=== PATIENT | male | born 1975 ===

== ENCOUNTER → 2022-03-02 12:22 | Outpatient (BNVA) | payer MEDICARE, MEDICAID, SELFPAY | PROVIDERS: Referring Provider Student in an Organized Health Care Education/Training Program; Visit Provider Internal Medicine Gastroenterology | DX: K59.01 Slow transit constipation (principal); Z93.1 Gastrostomy status; Z87.820 Personal history of traumatic brain injury | CPT/HCPCS: 99202 ==

== ENCOUNTER → 2022-08-31 11:32 | Outpatient (BNVA) | payer MEDICARE, MEDICAID, SELFPAY | PROVIDERS: Visit Provider Internal Medicine Gastroenterology | DX: Z93.1 Gastrostomy status (principal) | CPT/HCPCS: 99212 ==

== ENCOUNTER → 2023-05-31 14:19 | Outpatient (BNVA) | payer MEDICARE, MEDICAID, SELFPAY | PROVIDERS: Visit Provider Internal Medicine Gastroenterology | DX: K21.9 Gastro-esophageal reflux disease without esophagitis (principal) | CPT/HCPCS: 99212 ==

== ENCOUNTER 2023-11-01 08:53 | Outpatient (AMB) | payer MEDICARE, MEDICAID, SELFPAY ==
--- NOTE | 2023-11-01 09:27 | MHC.OFFVIS ---
Intake Vital Signs 11/01/23 09:34 Height 5 ft 7 in Weight 149 lb BMI 23.3 BP 128/81 Blood Pressure Location Lt brachial Position Sitting Pulse 80 Pulse Oximetry (%) 96 Intake Visit Reasons: elevated liver enzymes Intake Note: Deny presents in the office as a follow up for elevated LFTs. CC: US on the . His LFT are elevated. HE had a lot of bloody nose and mouth 3 weeks ago. Needs medications refilled. Allergies morphine Allergy (Mild, Verified 05/31/23 14:33) Unknown HPI elevated liver enzymes HPI Details 47 yr old with TBI being seen for f/u with mother Recap: Patient is non verbal at baseline and hx from mother and son patient has been doing well since hospitalization 12/2021 for pneumonia occ he needs a suppository for constipation mother is worried the G tube is too small sometimes liquid coming out of the tube tube itself flushes well, no issues with feeds He had 18 Fr BRADEN, 3 cm button placed 12/2021 Per mother he was admitted for pneumonia and vomiting just after I saw him last August INTERIM: Per mum no issues with constipation, miralax working well he has some issues with nose bleeds, and has humidifier at home no abdominal pain waiting for Us liver in Oct due to mild AST/ALt elevation EXAM: GENERAL: The patient is non verbal, spastic limbs noted, VITAL SIGNS:see workflow HEENT: Nonicteric sclerae, PERRLA, EOMI. Oropharynx clear. Moist mucous membranes. Conjunctivae appear well perfused. No thyroid mass. CHEST: Chest wall is nontender. HEART: Regular rate and rhythm without murmurs. LUNGS: rhonchrous breth sounds ABDOMEN: Soft, positive bowel sounds, nontender, no organomegaly.no flank tenderness, G tube noted SKIN: No rash, no excessive bruising, petechiae, or purpura. NEUROLOGIC: Cranial nerves II-XII intact without motor/sensory deficit. Psych--non verbal A/P: 1/ nose bleeds, has seen ENT in past and told he has friable nasal veins 2/ abn LFT prob PITTMAN PLAN: 1/ await US liver--hold on trental and vit E for the moment 2/ cont with PPI for aspiriation hx 3/ add saline nasal spray 4/ get heme notes from [facility] Family History Mother HTN (hypertension) Father Diabetes Physical Exam Vital Signs: Last Vital Signs Pulse 80 11/01/23 09:34 BP 128/81 11/01/23 09:34 Pulse Ox 96 11/01/23 09:34 BMI result Body Mass Index 23.3 Assessment & Plan Assessment & Plan (1) GERD (gastroesophageal reflux disease): Code(s): K21.9 - Gastro-esophageal reflux disease without esophagitis Plan: PLAN: 1/ await US liver 2/ cont with PPI for aspiriation hx 3/ add saline nasal spray 4/ get heme notes from [facility] (2) Bleeding nose: Code(s): R04.0 - Epistaxis Plan: PLAN: 1/ await US liver 2/ cont with PPI for aspiriation hx 3/ add saline nasal spray 4/ get heme notes from [facility] Medications: New sodium chloride 0.65% (Children's Saline Nasal [place]) while awake 2 sprays intranasal Q2H 30 mL 2RF Refilled polyethylene glycol 3350 (Gavilax) 17 grams PO BID 100 ea 2RF Coding Level of Care Code Est Pt Level 3 (73866) Diagnoses GERD (gastroesophageal reflux disease) K21.9 Bleeding nose R04.0
[2023-11-01 09:34] VITALS: BP 128/81; PULSE 80; O2SAT 96; BMI 23.3
== END 2023-11-01 09:57 | disposition home or self-care (01) ==
PROVIDERS: Visit Provider Internal Medicine Gastroenterology
DX: K21.9 Gastro-esophageal reflux disease without esophagitis (principal); R04.0 Epistaxis
CPT/HCPCS: 99213

== ENCOUNTER → 2023-11-01 08:53 | Outpatient (BNVA) | payer MEDICARE, MEDICAID, SELFPAY | PROVIDERS: Visit Provider Internal Medicine Gastroenterology | DX: R04.0 Epistaxis (principal); K21.9 Gastro-esophageal reflux disease without esophagitis; R74.8 Abnormal levels of other serum enzymes | CPT/HCPCS: 99212 ==

== ENCOUNTER 2023-12-24 08:43 | Outpatient (REF) | payer MEDICARE, MEDICAID, SELFPAY | END 2023-12-24 08:44 | disposition home or self-care (01) | LOC: CF 08:43 | PROVIDERS: Visit Provider Internal Medicine Gastroenterology | DX: R16.0 Hepatomegaly, not elsewhere classified (principal) | CPT/HCPCS: 99212 ==

== ENCOUNTER 2023-12-24 08:43 | Outpatient (AMB) | payer MEDICARE, MEDICAID, SELFPAY ==
--- NOTE | 2023-12-24 08:49 | A.OFFVIS_ITS ---
Intake Vital Signs 12/24/23 09:01 Height 5 ft 7 in Weight 149 lb BMI 23.3 BP 129/70 Blood Pressure Location Lt brachial Position Sitting Pulse 82 Intake Visit Reasons: Urgent appt requested PCP Intake Note: Deny presents in the office as a urgent appt from PCP. CC: Talk about CT and US results. Mass on Liver was found and would like to just have you look at the g tube. Allergies morphine Allergy (Mild, Verified 12/24/23 09:01) Unknown HPI Urgent appt requested PCP HPI Details 48 yr old with TBI being seen for f/u wi th mother Recap: Patient is non verbal at baseline and hx from mother and son patient has been doing well since hospitalization 12/2021 for pneumonia occ he needs a suppository for constipation mother is worried the G tube is too small sometimes liquid coming out of the tube tube itself flushes well, no issues with feeds He had 18 Fr BRADEN, 3 cm button placed 12/2021 INTERIM: Sent by PCP for early f/u due to liver imaging with CT revealing liver masses, most consistent with FNH with arterial enhancement and iso attenuation in venous phase, stable compared to prior CT 04/2023, unable to get MRI due to metal in body-- I personally reviewed the images otherwise he is well no constipation no sigsn fo distress EXAM: GENERAL: The patient is non verbal, spastic limbs noted, VITAL SIGNS:see workflow HEENT: Nonicteric sclerae, PERRLA, EOMI. Oropharynx clear. Moist mucous membranes. Conjunctivae appear well perfused. No thyroid mass. CHEST: Chest wall is nontender. HEART: Regular rate and rhythm without murmurs. LUNGS: rhonchrous breath sounds ABDOMEN: Soft, positive bowel sounds, nontender, no organomegaly.no flank tenderness, G tube noted SKIN: No rash, no excessive bruising, petechiae, or purpura. NEUROLOGIC: Cranial nerves II-XII intact without motor/sensory deficit. Psych--non verbal A/P: 1/ abn LFT prob PITTMAN, imaging with likel y FNH PLAN: 1/ repeat Ct in [address] ability, if needed can bx PFSH Family History Mother HTN (hypertension) Father Diabetes Physical Exam Vital Signs: Last Vital Signs Pulse 82 12/24/23 09:01 BP 129/70 12/24/23 09:01 BMI result Body Mass Index 23.3 Assessment & Plan Assessment & Plan (1) Liver mass: Code(s): R16.0 - Hepatomegaly, not elsewhere classified Plan: see above Orders: Orders CT abdomen wo/w IV con 3 Months R16.0 - Hepatomegaly, not elsewhere classified Coding Level of Care Code Est Pt Level 3 (07025) Diagnoses Liver mass R16.0
[2023-12-24 09:01] VITALS: BP 129/70; PULSE 82; BMI 23.3
== END 2023-12-24 09:37 | disposition home or self-care (01) ==
PROVIDERS: Visit Provider Internal Medicine Gastroenterology
DX: R16.0 Hepatomegaly, not elsewhere classified (principal)
CPT/HCPCS: 99213

== ENCOUNTER 2024-03-16 10:12 | Outpatient (REF) | payer MEDICARE, MEDICAID, SELFPAY ==
--- NOTE | ~2024-03-16 | CT_ITS ---
EXAMINATION: CT ABDOMEN WITHOUT AND WITH CONTRAST CLINICAL INFORMATION: Hepatomegaly with outside CT scan suspecting FNH. Unable to get MRI for surveillance. COMPARISON: None available. TECHNIQUE: Contiguous axial thin section helical images of the abdomen were performed before and after the administration of oral contrast and 85 mL of Omnipaque 350 intravenous contrast. Two sets of postcontrast imaging was obtained, one during the arterial phase the other during the portal venous phase. The data set was reformatted in the coronal and sagittal planes and reviewed on an independent workstation. This CT examination was performed using dose optimization techniques as appropriate, variously including the following: *Automated exposure control *Adjustment of mA and/or kV according to patient size (this includes techniques or standardized protocols for targeted exams where dose is matched to indication/reason for exam; i.e. extremities or head) *Use of iterative reconstruction technique DLP: 2061 mGy-cm FINDINGS: LUNG BASES: There is chronic atelectasis/infiltrate in the posterior basal segment of the right lower lobe. No evidence of pulmonary metastatic disease. LIVER, GALLBLADDER, AND BILIARY TREE: Two liver masses are present. There is one in the left lobe of the liver measuring 5.7 x 3.8 cm in maximal transverse dimension previously measuring 5.6 x 3.5 cm (4:33 compare prior 602:59) with another in the caudate with maximal measurements of 4.7 x 3.6 cm previously 4.5 x 3.5 cm (4:34 compare prior 602:60). There is a smaller area of hyperattenuation seen in the right lobe of the liver in a subcapsular position measuring 0.8 cm which is unchanged (4:25 compare prior 602:46). No other definite hepatic masses. No biliary ductal dilatation is seen. The gallbladder is not seen. PANCREAS: Unremarkable. SPLEEN: Unremarkable. ADRENAL GLANDS: Unremarkable. KIDNEYS AND URETERS: The kidneys are normal in size, shape, and attenuation. No hydronephrosis, hydroureter, or calculi seen. No perinephric stranding. A benign right mid renal 1.0 cm Bosniak class I renal cyst is noted which requires no additional imaging or followup. No solid renal masses are seen. GASTROINTESTINAL TRACT: The visualized bowel is unremarkable including the appendix. ABDOMINAL WALL: An intrathecal pump is implanted in the right lower quadrant with a catheter extending into the spinal canal extending upwards beyond the [id number]. LYMPH NODES: No retroperitoneal lymphadenopathy. VASCULAR: Unremarkable. OSSEOUS STRUCTURES: Unremarkable. CT/CT abdomen wo/w IV con IMPRESSION: 1. Two hepatic masses are present. The largest has increased in size slightly compared with the prior study. The smaller one is unchanged. MRI is recommended for further characterization. 2. Other incidental findings as described above. Fleischner guidelines were followed.
[2024-03-16] MEDS: iohexoL 350 MG/ML 100 ML INFUS..BTL IV (11:28)
== END 2024-03-16 10:13 | disposition home or self-care (01) ==
LOC: HO.CT 10:12
PROVIDERS: Visit Provider Internal Medicine Gastroenterology
DX: R16.0 Hepatomegaly, not elsewhere classified (principal)
CPT/HCPCS: 74170; Q9967

== ENCOUNTER → 2024-04-11 12:36 | Outpatient (REF) | payer MEDICARE, MEDICAID, SELFPAY ==
--- NOTE | ~2024-04-11 | NM_ITS ---
EXAMINATION: PLANAR AND SPECT/CT LIVER/SPLEEN SCAN CLINICAL INFORMATION: 48-year-old male with hepatomegaly and hypervascular lesion seen on outside CT scan. Suspected FNH. Unable to get MRI for surveillance. COMPARISON: CT scan of the abdomen done on 03/16/[address] scan of the abdomen and done on 12/06/2023. TECHNIQUE: Multiple gamma scintillation camera images of the liver and spleen were performed following the intravenous administration of 5.0 mCi Tc-99m Sulfur Colloid. Additional SPECT images of the abdomen were also obtained. Single photon emission tomography (SPECT) of the abdomen was performed using a hybrid SPECT/CT scanner acquiring 120 projections of 25 seconds each over 360 degrees using a noncircular orbit and an acquisition matrix of [id number]. Transverse, coronal and sagittal projections and a cine volume were reconstructed. Nondiagnostic CT images were obtained for attenuation correction and localization. FINDINGS: Planar and SPECT imaging: The liver is normal in size, shape, and position. There is relatively homogeneous distribution of activity within both lobes of the liver except for presence of relative photopenia corresponding to the site of previously documented to large (measuring approximately 5.7 and 4.7 cm at their maximum dimensions respectively) hypervascular masses seen within the caudate lobe and segment 2/3 of left lobe of the liver, better visualized on prior CT studies done on 12/06/2023 and 03/16/2024. Please note that 2/3rd of FNH greater than 2 cm typically shows tracer avidity greater than that of the adjacent liver while the remainder of the 1/3rd of the FNH typically photopenic. Accordingly, differential diagnostic consideration would remain photopenic FNH versus other non- FNH pathology. The findings are much better visualized on the SPECT images as compared to the planar. The spleen is normal in size, shape and position. Intensity of the spleen compared to the liver is normal, with the spleen slightly less intense than the liver. Very faint bone marrow activity is visualized, and this is physiological. NM/NM liver SPECT IMPRESSION: Previously documented 5.7 and 4.7 cm hypervascular masses seen within the liver do not show any increased tracer/sulfur colloid avidity as compared to the background liver parenchyma. Differential includes photopenic FNH versus other non-FNH pathology. Further differentiation cannot be made based on this imaging appearance alone. Image guided biopsy may be considered for definitive histopathologic correlation, if clinically appropriate.
== END ==
LOC: HO.NUCMED 12:36
PROVIDERS: Visit Provider Internal Medicine Gastroenterology
DX: R16.0 Hepatomegaly, not elsewhere classified (principal)
CPT/HCPCS: 78803; A9541

== ENCOUNTER 2024-05-05 09:03 | Outpatient (AMB) | payer MEDICARE, MEDICAID, SELFPAY ==
--- NOTE | 2024-05-05 09:04 | MHC.OFFVIS ---
Vital Signs 05/05/24 09:20 Height 5 ft 7 in Weight 149 lb BMI 23.3 BP 126/60 Blood Pressure Location Lt brachial Position Sitting Pulse 91 Intake Visit Reasons: [address] results Intake Note: Deny presents in the office as a 4 month follow up for CT results. Wants to discuss scheduling a change in the G tube. Preassembler And Inspector Required: Yes Allergies morphine Allergy (Mild, Verified 05/05/24 09:25) Unknown HPI HPI [address] results: Details: 48 yr old with TBI being seen for f/u with mother Recap: Patient is non verbal at baseline and hx from mother and son patient has been doing well since hospitalization 12/2021 for pneumonia occ he needs a suppository for constipation mother is worried the G tube is too small sometimes liquid coming out of the tube tube itself flushes well, no issues with feeds He had 18 Fr LARS, 3 cm button placed 12/2021 Sent by PCP for early f/u due to liver imaging with CT revealing liver masses, most consistent with FNH with arterial enhancement and iso attenuation in venous phase, stable compared to prior CT 04/2023, unable to get MRI due to metal in body-- I personally reviewed the images Due to liver mass, SPECT done possible FNH - INTERIM: otherwise he is well no constipation stable per mother - g tube feeds easy, no leaking EXAM: GENERAL: The patient is non verbal, spastic limbs noted, VITAL SIGNS:see workflow HEENT: Nonicteric sclerae, PERRLA, EOMI. Oropharynx clear. Moist mucous membranes. Conjunctivae appear well perfused. No thyroid mass. CHEST: Chest wall is nontender. HEART: Regular rate and rhythm without murmurs. LUNGS: rhonchrous breath sounds ABDOMEN: Soft, positive bowel sounds, nontender, no organomegaly.no flank tenderness, G tube noted--looks to be in good shape SKIN: No rash, no excessive bruising, petechiae, or purpura. NEUROLOGIC: Cranial nerves II-XII intact without motor/sensory deficit. 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
[2024-05-05 09:20] VITALS: BP 126/60; PULSE 91; BMI 23.3
== END 2024-05-05 09:38 | disposition home or self-care (01) ==
PROVIDERS: Visit Provider Internal Medicine Gastroenterology
DX: R16.0 Hepatomegaly, not elsewhere classified (principal)
CPT/HCPCS: 99213

== ENCOUNTER → 2024-05-05 09:03 | Outpatient (BNVA) | payer MEDICARE, MEDICAID, SELFPAY | PROVIDERS: Visit Provider Internal Medicine Gastroenterology | DX: R16.0 Hepatomegaly, not elsewhere classified (principal); Z93.1 Gastrostomy status | CPT/HCPCS: 99212 ==

== ENCOUNTER 2024-05-16 07:19 | Day surgery (SDC) | payer MEDICARE, MEDICAID, SELFPAY ==
[2024-05-16] VITALS (13 sets, daily range): BP systolic 121–141; BP diastolic 76–87; PULSE 69–84; RESP 10–22; TEMP 36.4–36.6; O2SAT 93–98; BMI 23.5
--- NOTE | ~2024-05-16 | US_ITS ---
Enlarging liver masses. Patient unable to get an MRI. Nuclear medicine scan indeterminate for FNH. Gastroenterology requests a liver mass biopsy. PROCEDURES: 1. Limited preprocedure ultrasound of the abdomen. Permanent images saved in PACS. 2. Ultrasound-guided biopsy of the left lobe liver mass. 3. Limited preprocedure ultrasound of the abdomen. Permanent images saved in PACS. CLINICIANS: Erick Tripp PA-C MEDICATIONS: -Lidocaine 1% 10 mL SQ -Antibiotics: None -For additional details, please see anesthesia flowsheet. COMPLICATIONS: None ESTIMATED BLOOD LOSS: < 5 ml CONTRAST: None SPECIMENS: 3 x 18 g cores were sent to pathology PROCEDURE NOTE: The procedure, risks, benefits, and alternatives were carefully explained to the patient's mother and written informed consent was obtained. The patient was placed supine on the exam table. A timeout was performed. A limited ultrasound of the abdomen was performed to localize the left lobe liver lesion and choose appropriate needle entry and trajectory. The patient was prepped and draped in usual sterile fashion. The skin and deeper soft tissues were anesthetized with lidocaine. Under ultrasound guidance, a 17 gague trocar needle was advanced to the liver lesion. An 18 gauge biopsy device was inserted through the trocar needle and advanced into the liver lesion. A total of 3, 18 gague cores were performed. The specimens were placed in formalin. A total of 3 Gelfoam torpedoes were then administered through the trocar needle into the biopsy tract and at the level of the liver capsule. The needle was removed. A limited post procedure ultrasound was then performed. Images were saved in PACS. A dry dressing was applied and secured with Tegaderm. There were no immediate complications. The patient was stable after the procedure and was transferred to the post anesthesia care unit. The procedure was done with the assistance of the anesthesia department. US/US biopsy liver Impression: Ultrasound-guided biopsy of a left lobe liver mass. This procedure was performed by Erick Tripp PA-C and supervised by Dr. Alves.
[2024-05-16 08:40] LABS: Basophils Percent Auto 0.3 % (0-2); Mean Platelet Volume 9.7 fL (9.4-12.4); Neutrophils Percent Auto 73.2 % (45-73); Red Cell Distribution Width 13.8 % (11.0-16.0)
[2024-05-16 08:42] LABS: Eosinophils Absolute Auto 0.1 X10*3/uL (0.0-0.4); Eosinophils Percent Auto 1.1 % (0-4); Hematocrit 47.8 % (42.0-52.0); Hemoglobin 16.3 g/dl (14.0-18.0); Imm Gran Abs Auto 0.05 X10*3/uL (0.00-0.03); Imm Gran Pct Auto 0.4 % (0.0-0.4); Lymphocytes Absolute Auto 2.1 X10*3/uL (1.2-4.9); Lymphocytes Percent Auto 17.5 % (20-40); Mean Corpuscular HGB Conc 34.1 g/dl (31.0-36.0); Mean Corpuscular Hemoglobin 29.5 pg (27.0-33.0); Mean Corpuscular Volume 86.6 fL (80.0-98.0); Monocytes Absolute Auto 0.9 X10*3/uL (0.1-1.2); Monocytes Percent Auto 7.5 % (2-11); Neutrophils Absolute Auto 8.6 x10*3/uL (2.0-8.3); Red Blood Count 5.52 X10*6/uL (4.60-5.80)
[2024-05-16 08:46] LABS: Platelet Count 240 X10*3/uL (160-400); White Blood Count 11.8 X10*3/uL (4.8-10.8)
[2024-05-16 08:50] LABS: Prothrombin Time 12.7 SEC (11.1-13.3)
[2024-05-16 08:52] LABS: Partial Thromboplastin Time 25.6 SEC (26.0-36.8)
--- NOTE | 2024-05-16 08:52 | PC.NURSE ---
Family states that patient is not in pain due to smiling. Patient is non verbal.
--- NOTE | 2024-05-16 09:21 | MHC.SHP ---
Pre-Procedural Eval Section A - 24 Hr Update-Section A only Date of Service: 05/16/24 Section B - Complete if H&P > 30 days Chief Complaint: LIVER BX, HEPATOMEGALY Details of Present Illness: 48 y/o man with TBI/nonverbal and enlarging liver lesions. Patient unable to get an MRI. NM liver scan inconclusive. GI requests a liver biopsy. Relevant Family History (Specify if Yes): No Relevant Social History: None Present Medications: see Short Stay Collaborative assessment Medical History: Significant History (TBI/non-verbal) History of Previous Operations: Relevant previous surgery/procedure and date(s) Allergies: Allergies Allergy/AdvReac Type Severity Reaction Status Date / Time morphine Allergy Mild Unknown Verified 05/16/24 08:48 Review of Systems Review of Systems Comment: unable to assess Exam Surgical H&P Exam: Normal: Heart, Normal: Lungs and Normal: Skin and Significant Findings: Abdomen (protuberant) Plan Targeted Liver mass biopsy Time Spent With Patient Time: Total time managing care of this patient today ____ minutes.
[2024-05-16] MEDS: Lidocaine HCl 1 % MPF 5 ML VIAL 10 ML SUBCUT (09:59)
== END 2024-05-16 14:52 | disposition home or self-care (01) ==
PROVIDERS: Physician Assistant Surgical; Visit Provider Internal Medicine Gastroenterology
DX: R16.0 Hepatomegaly, not elsewhere classified (principal); G40.909 Epilepsy, unspecified, not intractable, without status epilepticus; Z87.820 Personal history of traumatic brain injury; Z97.8 Presence of other specified devices; I10 Essential (primary) hypertension; F88 Other disorders of psychological development; K21.9 Gastro-esophageal reflux disease without esophagitis; M24.59 Contracture, other specified joint; J45.909 Unspecified asthma, uncomplicated; Z79.51 Long term (current) use of inhaled steroids; Z79.899 Other long term (current) drug therapy; Z88.5 Allergy status to narcotic agent
CPT/HCPCS: 36415; 47000; 76942; 85025; 85610; 85730; 86850; 86900; 86901; 88307; 88313; 88341; 88342; 99152; J2371; J2704; J3010

== ENCOUNTER → 2024-05-16 08:10 | Outpatient (BNV) | payer MEDICARE, MEDICAID, SELFPAY | PROVIDERS: Visit Provider Physician Assistant Surgical | DX: R16.0 Hepatomegaly, not elsewhere classified (principal) | CPT/HCPCS: 47000; 76942 ==

== ENCOUNTER 2024-07-07 08:13 | Outpatient (AMB) | payer MEDICARE, MEDICAID, SELFPAY ==
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
[2024-07-07 08:53] VITALS: BP 127/76; PULSE 89; BMI 29.3
== END 2024-07-07 09:14 | disposition home or self-care (01) ==
PROVIDERS: Visit Provider Internal Medicine Gastroenterology
DX: R16.0 Hepatomegaly, not elsewhere classified (principal)
CPT/HCPCS: 99213

== ENCOUNTER → 2024-07-07 08:13 | Outpatient (BNVA) | payer MEDICARE, MEDICAID, SELFPAY | PROVIDERS: Visit Provider Internal Medicine Gastroenterology | DX: R16.0 Hepatomegaly, not elsewhere classified (principal); K76.9 Liver disease, unspecified; K75.81 Nonalcoholic steatohepatitis (NASH); Z71.2 Person consulting for explanation of examination or test findings | CPT/HCPCS: 99212 ==

== ENCOUNTER 2024-09-13 08:22 | Outpatient (REF) | payer MEDICARE, MEDICAID, SELFPAY ==
--- NOTE | ~2024-09-13 | CT_ITS ---
EXAMINATION: CT ABDOMEN AND PELVIS WITHOUT AND WITH CONTRAST CLINICAL INFORMATION: Liver lesions. Liver disease. Status post biopsy. Surveillance. COMPARISON: CT abdomen dated March 16, 2024. TECHNIQUE: Multidetector volumetric imaging was performed of the abdomen and pelvis before and after the IV administration of 85 mL of Omnipaque 350 strength intravenous contrast without reported immediate complications acquisition during the portal venous and delayed phases. Sagittal and coronal reformatted images were obtained on the technologist's workstation. This CT examination was performed using dose optimization techniques as appropriate, variously including the following: *Automated exposure control *Adjustment of mA and/or kV according to patient size (this includes techniques or standardized protocols for targeted exams where dose is matched to indication/reason for exam; i.e. extremities or head) *Use of iterative reconstruction technique DLP: 2159 mGy-cm FINDINGS: Submitted for interpretation on November 09, 2024. LUNG BASES: Confluent attenuation with air bronchograms in the right lung base. Multifocal patchy pulmonary groundglass, lung bases lingula and right middle lobe. Lymphadenopathy, mediastinum and perihilar. LIVER, GALLBLADDER, AND BILIARY TREE: Liver measures 19 cm. There is a nodular surface. There is a lobulated, 5.4 x 3.5 x 4.5 cm prominently peripheral and heterogeneous enhancing mass with a low density center in the caudate lobe. This mass abuts the intrahepatic segment of the IVC. There is a 4.5 x 5.7 x 2.9 cm, predominantly peripheral heterogeneously enhancing mass centered in the dome of the left hepatic lobe. The main portal veins, hepatic veins and intrahepatic portions of the IVC are patent. The gallbladder is absent. No intrahepatic or extrahepatic biliary ductal dilatation. PANCREAS: No focal mass. No peripancreatic fluid collection. No main pancreatic ductal dilatation. SPLEEN: 8 cm. No focal mass. ADRENAL GLANDS: No nodular lesions. KIDNEYS AND URETERS: No renal mass. No hydronephrosis. Normal enhancement pattern of the corticomedullary renal parenchyma. 5 mm cyst in the midportion right kidney. BLADDER: Collapsed. GASTROINTESTINAL TRACT: Abundant stool within the large intestine. There is thickening of the rectum wall. No pneumoperitoneum. No ascites. Appendix is normal. No pneumatosis intestinalis. Percutaneously placed gastrostomy tube anchored in the body of the stomach. ABDOMINAL WALL: Diastases abdominal rectus muscles. LYMPH NODES: Prominent lymph nodes, mesenteric and retroperitoneal. Lymphadenopathy, mediastinum and right pulmonary hilum. VASCULAR: No aneurysm or dissection abdominal aorta. Mixed plaques in the distal abdominal aorta wall. . OSSEOUS STRUCTURES: Old traumatic deformity left coxofemoral joint with the osteoporosis. There is a metallic hardware in the left femur this is not fully evaluated. Multilevel thoracolumbar spondylosis without acute fracture. There is a metallic reservoir intraspinal canal stimulator device in lower right lateral abdominal wall with intraspinal canal electrodes entering the dorsal L2-3 level and deep towards the upper thoracic spine no fully included. CT/CT abdomen pelvis wo/w IV con IMPRESSION: 2 hepatic lesions, stable since the prior exam from March 16, 2024. Lymphadenopathy, mediastinum and right pulmonary hilum with associated airspace disease, right lung. Malignancy cannot be excluded. Concerning Stercoral colitis Fleischner guidelines were followed. Electronically signed by: Bennett Dukes MD 11/09/2024 09:42 AM LOR
[2024-09-13] MEDS: iohexoL 350 MG/ML 100 ML INFUS..BTL IV (09:50)
== END 2024-09-13 08:23 | disposition home or self-care (01) ==
LOC: HO.CT 08:22
PROVIDERS: PCP Student in an Organized Health Care Education/Training Program; Visit Provider Internal Medicine Gastroenterology
DX: K76.9 Liver disease, unspecified (principal)
CPT/HCPCS: 74178; Q9967

== ENCOUNTER → 2024-09-13 08:24 | Outpatient (BNV) | payer MEDICARE, MEDICAID, SELFPAY | PROVIDERS: PCP Student in an Organized Health Care Education/Training Program; Visit Provider Radiology Diagnostic Radiology | DX: K76.9 Liver disease, unspecified (principal) | CPT/HCPCS: 74178 ==

== ENCOUNTER 2024-11-10 09:03 | Outpatient (AMB) | payer MEDICARE, MEDICAID, SELFPAY ==
--- NOTE | 2024-11-10 09:11 | MHC.OFFVIS ---
Vital Signs 11/10/24 09:16 Height 5 ft BP 114/52 L Blood Pressure Location Lt brachial Position Sitting Pulse 86 Pulse Source Pulse Oximeter Pulse Oximetry (%) 93 Intake Visit Reasons: 4 month follow up Intake Note: Deny presents in the office as a 4 month follow up. CC: Mother states that he has not had a BM in about 3-4 days. Sometimes he will get the suppository and it seems to work. Allergies morphine Allergy (Mild, Verified 11/10/24 09:15) Unknown HPI HPI 4 month follow up: Details: 48 yr old with TBI being seen for f/u with mother Recap: Patient is non verbal at baseline and hx from mother and son patient has been doing well since hospitalization 12/2021 for pneumonia occ he needs a suppository for constipation mother is worried the G tube is too small sometimes liquid coming out of the tube tube itself flushes well, no issues with feeds He had 18 Fr LARS, 3 cm button placed 12/2021 Sent by PCP for early f/u due to liver imaging with CT revealing liver masses, most consistent with [facility] with arterial enhancement and iso attenuation in venous phase, stable compared to prior CT 04/2023, unable to get MRI due to metal in body-- I personally reviewed the images Due to liver mass, SPECT done possible [facility] - Liver biospy, normal INTERIM: Repeat CT with stable massess, LN noted, but he had pneumonia per mum around that time he has been stable no acute issues EXAM: GENERAL: The patient is non verbal, spastic limbs noted, VITAL SIGNS:see workflow HEENT: Nonicteric sclerae, PERRLA, EOMI. Oropharynx clear. Moist mucous membranes. Conjunctivae appear well perfused. No thyroid mass. CHEST: Chest wall is nontender. HEART: Regular rate and rhythm without murmurs. LUNGS: rhonchrous breath sounds ABDOMEN: Soft, positive bowel sounds, nontender, no organomegaly.no flank tenderness, G tube noted--looks to be in good shape SKIN: No rash, no excessive bruising, petechiae, or purpura. NEUROLOGIC: Cranial nerves II-XII intact without motor/sensory deficit. 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 but now has LN, can;t exclude neoplasia 2/ G tube dependant PLAN: 1/ repeat liver biopsy --discussed referral to tertiary center for further eval but mum is not too keen on this 2/ change G tube --18 Fr, 3 cm--Lars button PFSH Medical History Presence of intrathecal baclofen pump Developmental non-verbal disorder Contracted, joint, multiple sites Seizure disorder Asthma GERD (gastroesophageal reflux disease) Hypertension TBI (traumatic brain injury) Surgical History History of liver biopsy Family History Mother HTN (hypertension) Father Diabetes Social History Patient Tobacco Use Status: Never used Tobacco Physical Exam Vital Signs: Last Vital Signs Pulse 86 11/10/24 09:16 BP 114/52 L 11/10/24 09:16 Pulse Ox 93 11/10/24 09:16 Assessment & Plan Assessment & Plan (1) Liver mass: Code(s): R16.0 - Hepatomegaly, not elsewhere classified Category: Medical Plan: as above Orders: Orders US biopsy liver Today R16.0 - Hepatomegaly, not elsewhere classified Complete Blood Count Auto Diff Today R16.0 - Hepatomegaly, not elsewhere classified Prothrombin Time INR Today R16.0 - Hepatomegaly, not elsewhere classified Comprehensive Met. Panel Today K75.81 - Nonalcoholic steatohepatitis (PITTMAN), R16.0 - Hepatomegaly, not elsewhere classified Alpha Fetoprotein Today R16.0 - Hepatomegaly, not elsewhere classified Medications: Refilled omeprazole magnesium (Prilosec) 10 mg PO BID 60 ea 0RF Coding Level of Care Code Est Pt Level 4 (05342) Diagnoses Liver mass R16.0
[2024-11-10 09:16] VITALS: BP 114/52; PULSE 86; O2SAT 93
== END 2024-11-10 09:54 | disposition home or self-care (01) ==
PROVIDERS: Visit Provider Internal Medicine Gastroenterology
DX: R16.0 Hepatomegaly, not elsewhere classified (principal)
CPT/HCPCS: 99214

== ENCOUNTER → 2024-11-10 09:03 | Outpatient (BNVA) | payer MEDICARE, MEDICAID, SELFPAY | PROVIDERS: Visit Provider Internal Medicine Gastroenterology | DX: K75.81 Nonalcoholic steatohepatitis (NASH) (principal); R16.0 Hepatomegaly, not elsewhere classified | CPT/HCPCS: 99212 ==

== ENCOUNTER 2025-01-08 12:01 | Outpatient (AMB) | payer MEDICARE, MEDICAID, SELFPAY ==
--- NOTE | 2025-01-08 12:25 | MHC.OFFVIS ---
Vital Signs 01/08/25 12:28 Height 5 ft BP 148/45 H Blood Pressure Location Rt brachial Position Sitting Pulse 82 Intake Visit Reasons: Reyes Kim Placement Intake Note: Patient follow up for reyes kim placement. Patient denies any GI issues. Nurse School Required: No Accompanied by: Family/Other Allergies morphine Allergy (Mild, Verified 01/08/25 12:24) Unknown HPI HPI Reyes Kim Placement: Details: 48 yr old with TBI being seen for f/u with mother Recap: Patient is non verbal at baseline and hx from mother and son patient has been doing well since hospitalization 12/2021 for pneumonia occ he needs a suppository for constipation mother is worried the G tube is too small sometimes liquid coming out of the tube tube itself flushes well, no issues with feeds He had 18 Fr REYES, 3 cm button placed 12/2021 Sent by PCP for early f/u due to liver imaging with CT revealing liver masses, most consistent with [facility] with arterial enhancement and iso attenuation in venous phase, stable compared to prior CT 04/2023, unable to get MRI due to metal in body-- I personally reviewed the images Due to liver mass, SPECT done possible [facility] - Liver biospy, normal INTERIM: he has been stable no acute issues not had liver bx here for G tube replacement EXAM: GENERAL: The patient is non verbal, spastic limbs noted, VITAL SIGNS:see workflow HEENT: Nonicteric sclerae, PERRLA, EOMI. Oropharynx clear. Moist mucous membranes. Conjunctivae appear well perfused. No thyroid mass. CHEST: Chest wall is nontender. HEART: Regular rate and rhythm without murmurs. LUNGS: rhonchrous breath sounds ABDOMEN: Soft, positive bowel sounds, nontender, no organomegaly.no flank tenderness, G tube noted--looks to be in good shape SKIN: No rash, no excessive bruising, petechiae, or purpura. NEUROLOGIC: Cranial nerves II-XII intact without motor/sensory deficit. 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 but now has LN, can;t exclude neoplasia but seems unlikely based on clinical course 2/ G tube dependant PLAN: 1/ repeat liver biopsy -- reconnect with IR for this 2/ I changed the G tube --18 Fr, 3 cm--Reyes button PFSH Medical History Presence of intrathecal baclofen pump Developmental non-verbal disorder Contracted, joint, multiple sites Seizure disorder Asthma GERD (gastroesophageal reflux disease) Hypertension TBI (traumatic brain injury) Surgical History History of liver biopsy Family History Mother HTN (hypertension) Father Diabetes Social History Patient Tobacco Use Status: Never used Tobacco Physical Exam Vital Signs: Last Vital Signs Pulse 82 01/08/25 12:28 BP 148/45 H 01/08/25 12:28 Assessment & Plan Assessment & Plan (1) Liver mass: Code(s): R16.0 - Hepatomegaly, not elsewhere classified Category: Medical Plan: as above Coding Level of Care Code Est Pt Level 3 (75053) Diagnoses Liver mass R16.0 Comment g tube exchange
[2025-01-08 12:28] VITALS: BP 148/45; PULSE 82
== END 2025-01-08 13:17 | disposition home or self-care (01) ==
LOC: HO.HGI 12:02
PROVIDERS: Visit Provider Internal Medicine Gastroenterology
DX: R16.0 Hepatomegaly, not elsewhere classified (principal)
CPT/HCPCS: 99213

== ENCOUNTER → 2025-01-08 12:01 | Outpatient (BNVA) | payer MEDICARE, MEDICAID, SELFPAY | PROVIDERS: Visit Provider Internal Medicine Gastroenterology | DX: R16.0 Hepatomegaly, not elsewhere classified (principal); Z96.89 Presence of other specified functional implants | CPT/HCPCS: 99212 ==

== ENCOUNTER 2025-01-10 08:02 | Emergency (ER) | payer MEDICARE, MEDICAID, SELFPAY ==
--- NOTE | 2025-01-10 08:25 | ED_ITS ---
HPI - General Adult General Chief complaint: General Medical Stated complaint: FEEDING TUBE DISLODGED PER EMS Source: family, EMS and old records reviewed Mode of arrival: EMS Limitations: other History of Present Illness ED Provider: LAUREN MONTERROSO narrative: 49 yo male with PMH of GERD, nonverbal, hx of pneumonia, developmental delay, seizures, asthma, HTN, TBI uses a reyes-kim which was placed on 2021 - he just had it changed on 01/[address] Boykin. Family notes it fell out at 530am. Balloon still intact - GI note states 18Fr but there is a 20Fr in place. At this time will place 18F tube and look for reyes-kim MD complaint: dislodged feeding tube Onset (ago): hour(s) (530am today) Location: abdomen Radiation: non-radiation Severity: moderate Relieving factors: none Exacerbating factors: none Associated symptoms: denies other symptoms Treatments prior to arrival: none Related Data Home Medications ?Medication ?Instructions ?Recorded ?Confirmed diazepam 5 mg tablet 5 mg PO BID PRN Agitation 03/02/22 05/16/24 fluticasone propionate 50 1 spray intranasal BID PRN 03/02/22 05/16/24 mcg/actuation nasal allergies spray,suspension metoprolol tartrate 50 mg tablet 50 mg PO DAILY 03/02/22 05/16/24 valproic acid (as sodium salt) 250 mg PO 03/02/22 mg/5 mL oral solution baclofen 5 mg/5 mL oral solution 5 mg PO BEDTIME 05/31/23 05/16/24 bisacodyl 10 mg rectal suppository 10 mg SD DAILY PRN constipation 05/31/23 05/16/24 budesonide 1 mg/2 mL suspension mg inhalation DAILY 05/31/23 for nebulization albuterol sulfate 2.5 mg/3 mL mg inhalation Q4-6H PRN wheezing 05/05/24 (0.083 %) solution for nebulization amlodipine 10 mg tablet 10 mg PO DAILY 05/05/24 05/16/24 losartan 25 mg tablet 25 mg PO DAILY 05/05/24 05/16/24 aspirin 81 mg tablet,delayed 81 mg PO DAILY 07/07/24 release erythromycin 5 mg/gram (0.5 %) eye ophthalmic (eye) 07/07/24 ointment peg [id number] 1 drp ophthalmic (eye) 07/07/24 %-0.2 %-0.2 % eye drops (Artificial Tears ([id number])) Previous Rx's ?Medication ?Instructions ?Recorded hypertonic saline 3% ampules #1 ea 03/02/22 polyethylene glycol 3350 17 gram 17 g PO BID #100 ea 11/01/23 oral powder packet (Gavilax) omeprazole magnesium 10 mg oral 10 mg PO BID #60 ea 12/04/24 suspension,delayed release (Prilosec) Allergies Allergy/AdvReac Type Severity Reaction Status Date / Time morphine Allergy Mild Unknown Verified 01/10/25 08:32 Review of Systems Review of Systems: ROS unable to be obtained due to nonverbal PMFSH Past Medical History Attestation statement: The following information was validated with the patient. Source: old records reviewed Medical History Presence of intrathecal baclofen pump Developmental non-verbal disorder Contracted, joint, multiple sites Seizure disorder Asthma GERD (gastroesophageal reflux disease) Hypertension TBI (traumatic brain injury) Surgical History History of liver biopsy Family History Family History Mother HTN (hypertension) Father Diabetes Social History Social History Patient Tobacco Use Status: Never used Tobacco Advance Directives: No Advance Directives Information Provided: Yes Do you have a plan to hurt others: No Plan Physical Exam ED Vital Signs: Vital Signs - 24 hr 01/10/25 08:29 Temperature 99.1 F Pulse Rate 78 Respiratory Rate 16 Blood Pressure 142/82 H Pulse Oximetry 96 Oxygen Delivery Method Room Air BMI result Body Mass Index 23.5 Appearance: Alert. at baseline. No acute distress. Eyes: Pupils equal, round and reactive to light. ENT: Pharynx normal. Neck: Normal inspection. Neck supple. CVS: Normal heart rate and rhythm. Pulses normal. Respiratory: No respiratory distress. Breath sounds normal. Abdomen: site is slightly closed, no bleeding, no pain Skin: Skin warm and dry. Normal skin color. Extremities: No lower extremity edema. Neuro: at baseline per family Procedures Feeding Tube Replacement Type of Tube: gastrostomy Insertion Site Prior to Procedure: clean Tube Used for Reinsertion: [place] Tube Size (F): 18 Balloon size (mL): 7 Verification of Placement: auscultation Tube Secured by: tape/dressing Patient Tolerated Procedure: well and no complications Additional Comments: easily inserted with lubrication after placement and waiting [address] Boykin able to place 20Fr Reyes-Kim Medical Decision Making Medical Decision Making MDM Narrative: 49 yo male with PMH of GERD, nonverbal, hx of pneumonia, developmental delay, seizures, asthma, HTN, TBI s/o feeding tube 2021 at this time will need to replace tube I cannot find a reyes-kim but at bedside I was able to put in an 18Fr as his 20Fr did not fit. Will ask GI if they have a tube Differential Diagnosis Differential Diagnoses: The differential diagnosis associated with the presentation includes dislodged feeding tube Consult Healthcare Provider Management of the patient was discussed with: Teaching Assistant after 18F used to to open track Dr. Boykin able to place the tube Independent Historian Clinical information obtained from an independent historian. History obtained from or confirmed by: EMS and Other (family) External Record Review External record reviewed: Outpatient record Discharge Plan Discharge Clinical Impression: Dislodged gastrostomy tube Patient Disposition: Home, Self-Care Instructions: How to Use and Care for Your PEG Tube (ED) Additional Instructions: return for fevers, vomiting, worsening symptoms, bleeding or any other concerns. Prescriptions: No Action (DME) hypertonic saline 3% ampules 4 ml See Rx Instructions .Route .MEDSUPPLY Qty: 1 1RF Rx Instructions: As directed 3 times per day Prilosec 10 mg susp,delayed release for recon 10 mg PO BID Qty: 60 0RF diazepam 5 mg tablet 5 mg PO BID PRN (Reason: Agitation) fluticasone propionate 50 mcg/actuation spray,suspension 1 spray intranasal BID PRN (Reason: allergies) metoprolol tartrate 50 mg tablet 50 mg PO DAILY valproic acid (as sodium salt) 250 mg/5 mL solution PO polyethylene glycol 3350 [Gavilax] 17 gram powder in packet 17 g PO BID Qty: 100 2RF budesonide 1 mg/2 mL suspension for nebulization inhalation DAILY bisacodyl 10 mg suppository 10 mg SD DAILY PRN (Reason: constipation) baclofen 5 mg/5 mL solution 5 mg PO BEDTIME Artificial Tears(hj-dlpe-nwba) 1-0.2-0.2 % drops ophthalmic (eye) erythromycin 5 mg/gram (0.5 %) ointment ophthalmic (eye) aspirin 81 mg tablet,delayed release (DR/EC) 81 mg PO DAILY amlodipine 10 mg tablet 10 mg PO DAILY losartan 25 mg tablet 25 mg PO DAILY albuterol sulfate 2.5 mg /3 mL (0.083 %) solution for nebulization inhalation Q4-6H PRN (Reason: wheezing) Print Language: Bulgarian
[2025-01-10 08:29] VITALS: BP 142/82; BP 156/77; PULSE 78; PULSE 83; RESP 16; TEMP 37.3; O2SAT 96; BMI 23.5
--- OUTSIDE RECORDS SUMMARY | 2025-01-10 09:42 | XMS_ITS | Clinical Summary ---
Author Organization [facility] Address [address] [place] [address] Phone Care Team Providers Care Operations Research Engineer Name Role Phone Sadaf Nelson Primary Care Provider Allergies Active Allergy Reactions Criticality Noted Date Comments Morphine 10/03/2024 Medications losartan (COZAAR) 25 mg tablet Take 1 tablet (25 mg total) via g-tube at bedtime. Hold if sbp < 110 4 Active metoprolol tartrate (LOPRESSOR) 50 mg tablet Take 1 tablet (50 mg total) via g-tube at bedtime. Hold if sbp < 110 or HR < 60 4 Active Artificial Tears,pg-hypm-g lyc, 1-0.2-0.2 % drops Administer 2 mL into the left eye 4 (four) times a day. 4 Active valproic acid (DEPAKENE) 250 mg/5 mL syrup Take 12.5 mL (625 mg total) via g-tube 2 (two) times a day. To administer morning and night 4 Active valproate (DEPAKENE) 50 mg/mL syrup Take 10 mL (500 mg total) via g-tube 1 (one) time each day after lunch. One time mid day (Of note takes 12.5 mL in the AM and in the PM) 4 Active amLODIPine (NORVASC) 10 mg tablet Take 1 tablet (10 mg total) via g-tube at bedtime. 4 Active aspirin 81 mg chewable tablet Take 1 tablet (81 mg total) via g-tube at bedtime. Active PriLOSEC 10 mg susp,delayed release for recon Take 10 mg via g-tube 2 (two) times a day. Active diazePAM (VALIUM) 5 mg tablet Take 1 tablet (5 mg total) via g-tube 2 (two) times a day if needed for muscle spasms. Takes evening dose scheduled and morning dose as needed Active atorvastatin (LIPITOR) 40 mg tablet Take 1 tablet (40 mg total) via g-tube 1 (one) time each day. at bedtime. Active Active Problems Problem Noted Date Diagnosed Date Constipation 10/06/2024 Pneumonia 10/04/2024 Edema of left forearm 10/04/2024 Resolved Problems Problem Noted Date Diagnosed Date Resolved Date Hypoxia 10/03/2024 10/06/2024 Immunizations Name Administration Dates Next Due Influenza trivalent, 0.5mL, preservative free (Fluarix; FluLaval; Fluzone) ages 6mo and older (Afluria) 3 years and older 10/06/2024 Surgical History Surgery Date Site/Laterality Comments CHOLECYSTECTOMY TRACHEOSTOMY CLOSURE CRANIOTOMY BACLOFEN PUMP IMPLANTATION Medical History Medical History Date Comments TBI (traumatic brain injury) (CMS/HCC) Nonverbal Acute traumatic quadriplegia (CMS/HCC) Seizure (CMS/HCC) Hypertension GERD (gastroesophageal reflux disease) Family History Medical History Relation Name Comments Hypertension Father Stomach cancer Maternal Grandfather Diabetes Mother Relation Name Status Comments Father Maternal Grandfather Mother Son Alive Social History Tobacco Use Types Packs/Day Years Used Date Smoking Tobacco: Former Cigarettes Alcohol Use Standard Drinks/Week Comments Not Currently 0 (1 standard drink = 0.6 oz pur e alcohol) Sex and Gender Information Value Date Recorded Sex Assigned at Not on file Legal Sex Male 8:25 AM EST Gender Identity Not on file Sexual Orientation Not on file Obstetrics History Last Filed Vital Signs Vital Sign Reading Time Taken Comments Blood Pressure 134/77 10/06/2024 8:26 AM EST Pulse 94 10/06/2024 9:22 AM EST Temperature 37 ??C (98.6 ??F) 10/06/2024 7:52 AM EST Respiratory Rate 18 10/06/2024 8:26 AM EST Oxygen Saturation 96% 10/06/2024 9:22 AM EST Inhaled Oxygen Concentration - - Weight 63.5 kg (140 lb) 10/03/2024 4:52 PM EST Height 152.4 cm (5') 10/03/2024 4:52 PM EST Body Mass Index 27.34 10/03/2024 4:52 PM EST Plan of Treatment Health Maintenance Due Date Last Done Comments Hepatitis B Vaccines (1 of 3 - 19+ 3-dose series) 1996 Cholesterol Screening (Lipid Panel) 11/11/2022 Colorectal Cancer Screening: Colonoscopy 11/11/2022 Depression Screening 11/11/2022 HIV Screening 11/11/2022 Hepatitis C Screening 11/11/2022 Medicare Annual Wellness Visit 11/11/2022 Social Influencers of Health Screening 11/11/2022 Hypertension/CHF/CAD Annual BMP Blood Test 10/06/2025 10/06/2024, 10/05/2024, 10/04/2024, Additional history exists DTaP,Tdap,and Td Vaccines (3 - Td or Tdap) 12/06/2029 12/06/2019, 12/17/2009 Pneumococcal Vaccine: Pediatrics (0 to 5 Years) and At-Risk Patients (6 to 64 Years) Completed 10/22/2023, 09/07/2007 COVID-19 Vaccine Completed 08/16/2024, , 04/28/2022, Additional history exists Influenza Vaccine Completed 10/06/2024, , 09/14/2022, Additional history exists HIB Vaccines Aged Out No longer eligi ble based on patient's age to complete this topic HPV Vaccines Aged Out No longer eligi ble based on patient's age to complete this topic Hepatitis A Vaccines Aged Out No long er eligible based on patient's age to complete this topic IPV Vaccines Aged Out No longer eligi ble based on patient's age to complete this topic MMR Vaccines Aged Out No longer eligi ble based on patient's age to complete this topic Meningococcal ACWY Vaccine Aged Out N o longer eligible based on patient's age to complete this topic Meningococcal B Vacine Aged Out No lo nger eligible based on patient's age to complete this topic RSV Immunization Patients Under 20 months Aged Out No longer eligible based on patient's age to complete this topic Varicella Vaccines Aged Out No longer eligible based on patient's age to complete this topic Procedures Procedure Name Priority Date/Time Associated Diagnosis Comments BASIC METABOLIC PANEL Routine 10/06/2024 6:20 AM EST from Last 3 Months or Most Recently Relevant to Health Maintenance Results * (ABNORMAL) Basic metabolic panel (10/06/2024 6:20 AM EST) Sodium 142 133 - 145 mmol/L LAB CHEMISTRY METHOD 10/06/2024 7:35 AM [facility] Potassium 4.0 3.5 - 5.5 mmol/L LAB CHEMISTRY METHOD 10/06/2024 7:35 AM [facility] Chloride 107 96 - 110 mmol/L LAB CHEMISTRY METHOD 10/06/2024 7:35 AM [facility] CO2 30 21 - 32 mmol/L LAB CHEMISTRY METHOD 10/06/2024 7:35 AM [facility] Anion Gap 5 3 - 11 LAB CHEMISTRY METHOD 10/06/2024 7:35 AM [facility] Glucose 120(H) 70 - 100 mg/dL LAB CHEMISTRY METHOD 10/06/2024 7:35 AM [facility] BUN 5 5 - 25 mg/dL LAB CHEMISTRY METHOD 10/06/2024 7:35 AM [facility] Creatinine 0.42(L) 0.70 - 1.30 mg/dL LAB CHEMISTRY METHOD 10/06/2024 7:35 AM [facility] eGFR 134 >=60 mL/min/1. 73m2 LAB CHEMISTRY METHOD 10/06/2024 7:35 AM [facility] Comment:Calculation based on the??Chronic Kidney Disease Epidemiology Collaboration (CKD-EPI) equation refit??without adjustment for race. BUN/Creatinine Ratio 11.9 LAB CHEMISTRY METHOD 10/06/2024 7:35 AM [facility] Calcium 8.9 8.5 - 10.5 mg/dL LAB CHEMISTRY METHOD 10/06/2024 7:35 AM [facility] Blood Venous blood specimen / Unknown Venipuncture / Unknown 10/06/2024 6:20 AM EST 10/06/2024 6:52 AM EST Tasneem Hope MD LAB BLOOD ORDERABLES Final Result [facility] [address] [place] [address], [place] [phone] from Last 3 Months or Most Recently Relevant to Health Maintenance Insurance MEDICARE MEDICAID - [place] Advance Directives Documents on File Type Date Recorded Patient Print Buyer Expl anation Health Care Decision (hx) 02/03/2017 AD SMITH DIRECTIVE Health Care Decision (hx) 02/03/2017 AD SMITH DIRECTIVE Health Care Decision (hx) 02/03/2017 AD SMITH DIRECTIVE Health Care Decision (hx) 02/03/2017 AD SMITH DIRECTIVE Health Care Decision (hx) 02/03/2017 AD SMITH DIRECTIVE Health Care Decision (hx) 02/03/2017 AD SMITH DIRECTIVE Health Care Decision (hx) 02/03/2017 AD SMITH DIRECTIVE Health Care Decision (hx) 02/03/2017 AD SMITH DIRECTIVE Health Care Decision (hx) 02/03/2017 AD SMITH DIRECTIVE Health Care Decision (hx) 02/03/2017 AD SMITH DIRECTIVE Health Care Decision (hx) 02/03/2017 AD SMITH DIRECTIVE Health Care Decision (hx) 02/03/2017 AD SMITH DIRECTIVE * Full Code - Default (Latest Code Status on File) Date Activated Date Inactivated Comments 10/03/2024 11:13 PM 10/06/2024 3:49 PM This is ord er is used when code status has not been discussed with the patient, or code status is otherwise unknown/unconfirmed To update the patient's code status, place a code status order. Do not modify or discontinue any currently active code status orders. Care Teams Operations Research Engineer Relationship Specialty Start Date End Date Sadaf Nelson FNP [address] [place] [phone] PCP - General Family Medicine 10/03/24
--- OUTSIDE RECORDS SUMMARY | 2025-01-10 09:42 | XMS_ITS | Clinical Summary ---
Author Organization [facility] Address [address] [place] [address] Care Team Providers Care General Surgeon Name Role Phone Laura Mendoza MD Primary Care Provider Allergies Active Allergy Reactions Criticality Noted Date Comments Morphine 01/07/2023 Medications Medication Sig Dispensed Refills Start Date End Date Status diazePAM (VALIUM) tablet 5 mg Take 1 tablet (5 mg total) by mouth every 6 (six) hours as needed for anxiety. 0 Active Baclofen, Bulk, 500 MG/125ML SOLN by Does not apply route. 0 Active metoprolol succinate (TOPROL-XL) 24 hr tablet 100 mg Take by mouth daily. 0 Active divalproex (DEPAKOTE SPRINKLE) 125 MG capsule Take 1 capsule (125 mg total) by mouth 2 (two) times a day. 0 Active Active Problems Problem Noted Date Diagnosed Date Liver masses 11/07/2022 Social History Tobacco Use Types Packs/Day Years Used Date Smoking Tobacco: Never Assessed Sex and Gender Information Value Date Recorded Sex Assigned at Not on file Gender Identity Not on file Sexual Orientation Not on file Job Start Date Occupation Industry Not on file Not on file Not on file Last Filed Vital Signs Vital Sign Reading Time Taken Comments Blood Pressure 140/70 01/07/2023 10:22 AM EST Pulse 67 01/07/2023 10:22 AM EST Temperature 37.1 ??C (98.8 ??F) 01/07/2023 1 0:22 AM EST Respiratory Rate - - Oxygen Saturation 99% 01/07/2023 10: 22 AM EST Inhaled Oxygen Concentration - - Weight 68.9 kg (152 lb) 01/07/2023 10:2 2 AM EST Per mother, patient unable to get on the scale Height - - Body Mass Index - - Plan of Treatment Health Maintenance Due Date Last Done Comments Hepatitis B Vaccines (1 of 3 - 3-dose series) 1977 Hepatitis C Screening 1977 Depression Screening 1989 Preventative Health Evaluation 1995 Pneumococcal Vaccine (2 of 2 - PCV) 09/07/2008 09/07/2007 DTap / Tdap / Td (1 - Tdap) 12/07/2019 12/06/2019, 0 12/17/2009 Colon Cancer Screening (Colonoscopy) 2022 COVID-19 Vaccine ( season) 2024 04/28/2022, 05/30/2021, 05/09/2021 Influenza Vaccine (#1) 2024 0, 09/25/2019, 09/27/2018, Additional history exists RSV Ped < 20 months Aged Out No longe r eligible based on patient's age to complete this topic Care Teams General Surgeon Relationship Specialty Start Date End Date Laura Mendoza MD [address] [place] [phone] PCP - General Family Medicine 01/10/23
[2025-01-10 11:44] VITALS: BP 164/84; PULSE 97; RESP 20; TEMP 37.3; O2SAT 93
[2025-01-10 13:08] VITALS: BP 164/84; PULSE 89; RESP 18; TEMP 37.7; O2SAT 95
[2025-01-10 15:37] VITALS: BP 164/84; PULSE 89; RESP 18; TEMP 37.7; O2SAT 95
== END 2025-01-10 15:38 | disposition home or self-care (01) ==
PROVIDERS: Emergency Provider Emergency Medicine
DX: K94.23 Gastrostomy malfunction (principal); Z79.899 Other long term (current) drug therapy
CPT/HCPCS: 43762; 99283; 99284

== ENCOUNTER 2025-02-01 11:04 | Day surgery (SDC) | payer MEDICARE, MEDICAID, SELFPAY ==
--- OUTSIDE RECORDS SUMMARY | 2025-01-23 17:19 | XMS_ITS | Clinical Summary ---
Author Organization [facility] Address [address] [place] [address] Phone Care Team Providers Care Dental Internship Name Role Phone Sadaf Nelson Primary Care [...] mmol/L LAB CHEMISTRY METHOD 10/06/2024 7:35 AM [facility] Potassium 4.0 3.5 - 5.5 mmol/L LAB CHEMISTRY METHOD 10/06/2024 7:35 AM [facility] Chloride 107 96 - 110 mmol/L LAB CHEMISTRY METHOD 10/06/2024 7:35 AM [facility] CO2 30 21 - 32 mmol/L LAB CHEMISTRY METHOD 10/06/2024 7:35 AM [facility] Anion Gap 5 3 - 11 LAB CHEMISTRY METHOD 10/06/2024 7:35 AM [facility] Glucose 120(H) 70 - 100 mg/dL LAB CHEMISTRY METHOD 10/06/2024 7:35 AM [facility] BUN 5 5 - 25 mg/dL LAB CHEMISTRY METHOD 10/06/2024 7:35 AM [facility] Creatinine 0.42(L) 0.70 - 1.30 mg/dL LAB CHEMISTRY METHOD 10/06/2024 7:35 AM [facility] eGFR 134 >=60 mL/min/1. 73m2 LAB CHEMISTRY METHOD 10/06/2024 7:35 AM [facility] Comment:Calculation based on the??Chronic Kidney Disease Epidemiology Collaboration (CKD-EPI) equation refit??without adjustment for race. BUN/Creatinine Ratio 11.9 LAB CHEMISTRY METHOD 10/06/2024 7:35 AM [facility] Calcium 8.9 8.5 - 10.5 mg/dL LAB CHEMISTRY METHOD 10/06/2024 7:35 AM [facility] Blood Venous blood specimen / Unknown Venipuncture / Unknown 10/06/2024 6:20 AM EST 10/06/2024 6:52 AM EST Tasneem Hope MD LAB BLOOD ORDERABLES Final Result [facility] [address] [place] [address], [place] [phone] from Last 3 Months or Most Recently Relevant to Health Maintenance Insurance MEDICARE MEDICAID - [place] Advance Directives Documents on File Type Date Recorded 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 Care Teams Dental Internship Relationship Specialty Start Date End Date Sadaf Nelson FNP [address] [place] [phone] PCP - General Family Medicine 10/03/24
--- OUTSIDE RECORDS SUMMARY | 2025-01-23 17:19 | XMS_ITS | Clinical Summary ---
Author Organization [facility] Address [address] [place] [address] Care Team Providers Care Fermentation Manager Name Role Phone Laura Mendoza MD Primary [...] age to complete this topic Care Teams Fermentation Manager Relationship Specialty Start Date End Date Laura Mendoza MD [address] [place] [phone] PCP - General Family Medicine 01/10/23
[2025-02-01] VITALS (12 sets, daily range): BP systolic 130–160; BP diastolic 63–82; PULSE 74–93; RESP 16; TEMP 36.7–37.2; O2SAT 93–96; BMI 23.5
--- NOTE | ~2025-02-01 | CT_ITS ---
PROCEDURE: CT GUIDED BIOPSY, LIVER CLINICAL INFORMATION: liver mass Sedation services provided by anesthesia and recorded separately COMPLICATIONS: None immediately ESTIMATED BLOOD LOSS: < 5 ml CONTRAST: None SPECIMENS: 4 18-gauge core needle biopsy specimens placed in formalin and sent to pathology PROCEDURE NOTE: The procedure, risks, benefits, and alternatives were carefully explained to the patient/H CT and written informed consent was obtained. The patient was placed supine on the CT table. A timeout was performed. A limited CT of the abdomen was performed to localize the liver mass and choose appropriate needle entry and trajectory. The patient was prepped and draped in usual sterile fashion. The skin and deeper soft tissues were anesthetized with lidocaine. Under CT guidance, a 17 gague trocar needle was advanced to the left hepatic lobe liver mass. A 18 gauge biopsy device was inserted through the trocar needle and advanced into the mass. A total of 4 cores were performed. The specimens were placed in formalin and sent to pathology. Gelfoam slurry was then administered through the trocar needle. The needle was removed. A dry dressing was applied and secured with Tegaderm. There were no immediate complications. The patient was stable after the procedure and was transferred to the post anesthesia care unit. CT/CT biopsy liver Impression: CT-guided liver mass biopsy Electronically signed by: Saturnino Spring MD 02/01/2025 02:53 PM LOR
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
[2025-02-01 13:13] LABS: MANUAL DIFF FLAG NO
[2025-02-01 13:16] LABS: Basophils Percent Auto 0.3 % (0-2); Eosinophils Absolute Auto 0.1 X10*3/uL (0.0-0.4); Hematocrit 53.8 % (42.0-52.0); Hemoglobin 17.8 g/dl (14.0-18.0); Imm Gran Abs Auto 0.08 X10*3/uL (0.00-0.03); Imm Gran Pct Auto 0.9 % (0.0-0.4); Lymphocytes Absolute Auto 1.8 X10*3/uL (1.2-4.9); Lymphocytes Percent Auto 19.5 % (20-40); Mean Corpuscular HGB Conc 33.1 g/dl (31.0-36.0); Mean Corpuscular Hemoglobin 29.1 pg (27.0-33.0); Mean Corpuscular Volume 87.9 fL (80.0-98.0); Mean Platelet Volume 9.5 fL (9.4-12.4); Monocytes Absolute Auto 0.6 X10*3/uL (0.1-1.2); Monocytes Percent Auto 6.5 % (2-11); Neutrophils Absolute Auto 6.6 x10*3/uL (2.0-8.3); Neutrophils Percent Auto 71.8 % (45-73); Platelet Count 237 X10*3/uL (160-400); Red Blood Count 6.12 X10*6/uL (4.60-5.80); Red Cell Distribution Width 14.2 % (11.0-16.0); White Blood Count 9.2 X10*3/uL (4.8-10.8)
--- NOTE | 2025-02-01 13:19 | PC.NURSE ---
Patient has limited venous access. contracted legs and left arm. 3 phlebotomists were sent to draw labs. IV placed in sss with an unsuccessful attempts to draw labs from it. Erick Tripp was updated at noon that lab draw was difficult and author aware labs needed due to most recent labs are six months old. successful draw completed by 3 rd wax blender and brought to lab stat. all parties updated.
[2025-02-01 13:20] LABS: Prothrombin Time 12.2 SEC (10.9-12.4)
[2025-02-01 13:22] LABS: Partial Thromboplastin Time 30.9 SEC (26.0-36.8)
--- NOTE | 2025-02-01 13:58 | MHC.SHP ---
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 Relevant Family History (Specify if Yes): No Relevant Social History: None Present Medications: see Short Stay Collaborative assessment Medical History: Significant History History of Previous Operations: Relevant previous surgery/procedure and date(s) (liver biopsy- 04/2024) Allergies: Allergies Allergy/AdvReac Type Severity Reaction Status Date / Time morphine Allergy Mild Unknown Verified 02/01/25 11:59 Review of Systems Review of Systems Comment: unable to provide history Exam Surgical H&P Exam: Normal: Heart, Normal: Lungs and Normal: Abdomen (soft, obese) and Significant Findings: Neurological (alert ) Plan 49 y/o man with multiple liver masses. Previous biopsy non diagnostic -CT liver mass biopsy Time Spent With Patient Time: Total time managing care of this patient today ____ minutes.
== END 2025-02-01 18:10 | disposition home or self-care (01) ==
PROVIDERS: Physician Assistant Surgical; Student in an Organized Health Care Education/Training Program; Visit Provider Internal Medicine Gastroenterology
DX: R16.0 Hepatomegaly, not elsewhere classified (principal); K21.9 Gastro-esophageal reflux disease without esophagitis; I10 Essential (primary) hypertension; J45.909 Unspecified asthma, uncomplicated; G40.909 Epilepsy, unspecified, not intractable, without status epilepticus; R04.0 Epistaxis; R47.01 Aphasia; Z93.1 Gastrostomy status; Z87.820 Personal history of traumatic brain injury; Z79.899 Other long term (current) drug therapy
CPT/HCPCS: 36415; 47000; 77012; 85025; 85610; 85730; 86850; 86900; 86901; 88307; 88313; 88342; J0131; J2003; J2704; J3010

== ENCOUNTER → 2025-02-01 11:49 | Outpatient (BNV) | payer MEDICARE, MEDICAID, SELFPAY | PROVIDERS: Visit Provider Student in an Organized Health Care Education/Training Program | DX: D13.4 Benign neoplasm of liver (principal) | CPT/HCPCS: 47000; 77012 ==

== ENCOUNTER 2025-09-24 10:06 | Outpatient (AMB) | payer MEDICARE, MEDICAID, SELFPAY ==
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
[2025-09-24 10:14] VITALS: BP 134/63; PULSE 77
--- OUTSIDE RECORDS SUMMARY | 2025-09-24 12:03 | XMS_ITS | Clinical Summary ---
Author Organization [facility] Address [address] [place] [address] Care Team Providers Care Backup Sawyer Name Role Phone Laura Mendoza MD Primary [...] 69 01/07/2023 10:22 AM EST Temperature 37.1 C (98.8 F) 01/07/2023 10:22 AM EST Respiratory Rate - - Oxygen [...] Screening (Colonoscopy) 2022 COVID-19 Vaccine ( season) 2025 04/28/2022, 05/30/2021, 05/09/2021 Influenza Vaccine (#1) 2025 0, 09/25/2019, 09/27/2018, Additional history exists RSV Ped < 20 months Aged Out No longe r eligible based on patient's age to complete this topic Care Teams Backup Sawyer Relationship Specialty Start Date End Date Laura Mendoza MD [address] [place] [phone] PCP - General Family Medicine 01/10/23
== END 2025-09-24 10:22 | disposition home or self-care (01) ==
LOC: HO.HGI 10:06
PROVIDERS: Visit Provider Internal Medicine Gastroenterology
DX: R16.0 Hepatomegaly, not elsewhere classified (principal)
CPT/HCPCS: 99213

== ENCOUNTER → 2025-09-24 10:06 | Outpatient (BNVA) | payer MEDICARE, MEDICAID, SELFPAY | PROVIDERS: Visit Provider Internal Medicine Gastroenterology | DX: R16.0 Hepatomegaly, not elsewhere classified (principal) | CPT/HCPCS: 99212 ==

== ENCOUNTER 2025-10-29 09:40 | Outpatient (AMB) | payer MEDICARE, MEDICAID, SELFPAY ==
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
--- OUTSIDE RECORDS SUMMARY | 2025-10-29 11:40 | XMS_ITS | Clinical Summary ---
Author Organization [facility], Address [address] [place] [address] [place] [phone] Phone Care Team Providers Care Gas Appliance Repairer Name Role Phone Sadaf Nelson Primary Care Provider [phone] Allergies Active Allergy Reactions Criticality Noted Date Comments Morphine 10/15/2025 Medications No known medications Active Problems Problem Noted Date Diagnosed Date Hypertension 10/18/2025 Encounters Date Type Department Care Team Description 10/18/2025 9:00 AM EST Office Visit [facility] [address] [phone] Junior Chawla MD Hypertension (Primary Dx) from Last 3 Months Social History Tobacco Use Types Packs/Day Years Used Date Smoking Tobacco: Never Assessed Sex and Gender Information Value Date Recorded Sex Assigned at Not on file Legal Sex Male 12:48 PM EST Gender Identity Not on file Sexual Orientation Not on file Plan of Treatment Health Maintenance Due Date Last Done Comments Hepatitis B Vaccine (1 of 3 - 19+ 3-dose series) 1996 Pneumococcal Vaccine: Peds ( 0 to 5 Years) and At-Risk Patients (6 to 49 Years) (2 of 2 - PCV) 09/07/2008 09/07/2007 Influenza Vaccine Completed 08/28/2025, , 10/22/2023, Additional history exists Insurance Medicare Medicaid [place] Care Teams Gas Appliance Repairer Relationship Specialty Start Date End Date Sadaf Nelson [address] [place] [address] PCP - General 10/15/25
--- OUTSIDE RECORDS SUMMARY | 2025-10-29 11:40 | XMS_ITS | Clinical Summary ---
Author Organization [facility] Address [address] [place] [address] Care Team Providers Care Pet Supplies Salesperson Name Role Phone Laura Mendoza MD Primary [...] age to complete this topic Care Teams Pet Supplies Salesperson Relationship Specialty Start Date End Date Laura Mendoza MD [address] [place] [phone] PCP - General Family Medicine 01/10/23
--- OUTSIDE RECORDS SUMMARY | 2025-10-29 11:40 | XMS_ITS | Clinical Summary ---
Author Organization [facility] Address [address] [place] [address] Phone Care Team Providers Care Roustabout Supervisor Name Role Phone Sadaf Nelson Primary Care [...] Date Resolved Date Hypoxia 10/03/2024 10/06/2024 Immunizations Immunization Administration Dates Next Due Influenza trivalent, 0.5mL, preservative free (Fluarix; FluLaval; Fluzone) ages 6mo and older (Afluria) 3 years and older 10/06/2024 Surgical History Surgery Date Site/Laterality Comments CHOLECYSTECTOMY TRACHEOSTOMY CLOSURE CRANIOTOMY BACLOFEN PUMP IMPLANTATION Medical History Medical History Date Comments TBI (traumatic brain injury) (CMS/HCC V24, CMS/H CC V28) Nonverbal Acute traumatic quadriplegia (CMS/HCC V24, CMS/H CC V28) Seizure (CMS/HCC V24, CMS/HCC V28) Hypertension GERD (gastroesophageal reflux disease) Family History [...] 94 10/06/2024 9:22 AM EST Temperature 37 C (98.6 F) 10/06/2024 7:52 AM EST Respiratory Rate 18 10/06/2024 8:26 AM EST Oxygen Saturation 96% 10/06/2024 9:22 AM EST Inhaled Oxygen Concentration - - Weight 63.5 kg (140 lb) 10/03/2024 4:52 PM EST Height 152.4 cm (5') 10/03/2024 4:52 PM EST Body Mass Index 27.34 10/03/2024 4:52 PM EST Plan of Treatment Health Maintenance Due Date Last Done Comments Colorectal Cancer Screening: Colonoscopy 1977 Hepatitis B Vaccines (1 of 3 - 19+ 3-dose series) 1996 Cholesterol Screening (Lipid Panel) 11/11/2022 HIV Screening 11/11/2022 Hepatitis C Screening 11/11/2022 Medicare Annual Wellness Visit 11/11/2022 Social Influencers of Health Screening 11/11/2022 Depression Screening 11/29/2024 COVID-19 Vaccine ( season) 2025 08/16/2024, 02/26/2023, 04/28/2022, Additional history exists Influenza Vaccine (#1) 2025 , 10/22/2023, 09/14/2022, Additional history exists Hypertension/CHF/CAD Annual BMP Blood Test 10/06/2025 10/06/2024, 10/05/2024, 10/04/2024, Additional history exists DTaP,Tdap,and Td Vaccines (3 - Td or Tdap) 12/06/2029 12/06/2019, 12/17/2009 RSV Immunization Adult Patients (1 - 1-dose 75+ series) 2052 Pneumococcal Vaccine: Pediatrics (0 to 5 Years) and At-Risk Patients (6 to 49 Years) Completed 10/22/2023, 09/07/2007 HIB Vaccines Aged Out No longer eligi [...] age to complete this topic Meningococcal B Vaccine Aged Out No l onger eligible based on patient's age to complete [...] mmol/L LAB CHEMISTRY METHOD 10/06/2024 7:35 AM [facility] Potassium 4.0 3.5 - 5.5 mmol/L LAB CHEMISTRY METHOD 10/06/2024 7:35 AM [facility] Chloride 107 96 - 110 mmol/L LAB CHEMISTRY METHOD 10/06/2024 7:35 AM [facility] CO2 30 21 - 32 mmol/L LAB CHEMISTRY METHOD 10/06/2024 7:35 AM [facility] Anion Gap 5 3 - 11 LAB CHEMISTRY METHOD 10/06/2024 7:35 AM [facility] Glucose 120(H) 70 - 100 mg/dL LAB CHEMISTRY METHOD 10/06/2024 7:35 AM [facility] BUN 5 5 - 25 mg/dL LAB CHEMISTRY METHOD 10/06/2024 7:35 AM [facility] Creatinine 0.42(L) 0.70 - 1.30 mg/dL LAB CHEMISTRY METHOD 10/06/2024 7:35 AM [facility] eGFR 134 >=60 mL/min/1. 73m2 LAB CHEMISTRY METHOD 10/06/2024 7:35 AM [facility] Comment:Calculation based on the Chronic Kidney Disease Epidemiology Collaboration (CKD-EPI) equation refit without adjustment for race. BUN/Creatinine Ratio 11.9 LAB CHEMISTRY METHOD 10/06/2024 7:35 AM [facility] Calcium 8.9 8.5 - 10.5 mg/dL LAB CHEMISTRY METHOD 10/06/2024 7:35 AM EST [facility] Blood Venous blood specimen / Unknown Venipuncture / Unknown 10/06/2024 6:20 AM EST 10/06/2024 6:52 AM EST us Tasneem Hope MD LAB BLOOD ORDERABLES Final Result [facility] [address] [place] [address], from Last 3 Months or Most Recently Relevant to Health Maintenance Insurance MEDICARE MEDICAID - [place] Advance Directives Documents on File Type Date Recorded Patient Temporary Receptionist Expl anation Health Care Decision (hx) 02/03/2017 [...] currently active code status orders. Care Teams Roustabout Supervisor Relationship Specialty Start Date End Date Sadaf Nelson FNP [address] [place] [phone] PCP - General Family Medicine 10/03/24
== END 2025-10-29 10:15 | disposition home or self-care (01) ==
LOC: HO.HGI 09:41
PROVIDERS: Visit Provider Internal Medicine Gastroenterology
DX: Z93.1 Gastrostomy status (principal)
CPT/HCPCS: 43762

== ENCOUNTER → 2025-10-29 09:40 | Outpatient (BNVA) | payer MEDICARE, MEDICAID, SELFPAY | PROVIDERS: Visit Provider Internal Medicine Gastroenterology | DX: Z93.1 Gastrostomy status (principal) | CPT/HCPCS: 43762 ==